=== PATIENT | female | born 1990 ===

== ENCOUNTER 2018-03-07 16:38 | Inpatient (IN) | payer MEDICAID ==
[2018-03-07 17:02] VITALS: BMI 37.8
[2018-03-07] MEDS: Lactated Ringer's 1,000 ML IV SCH ×2 (17:10→18:34)
[2018-03-07] MEDS ORDERED: Oxytocin 30 UNIT 30 UNITS/500 ML BAG IV ONE ×2 (17:26→20:17)
[2018-03-07] MEDS ORDERED: Lactated Ringer's 1,000 ML IV SCH (17:30)
[2018-03-07 18:00] LABS: BASO # 0.1 K/uL (0.0-0.2); BASO % 0.4 % (0.0-2.0); EOS # 0.1 K/uL (0.0-0.7); EOS % 0.6 % (0.0-4.0); HEMOGLOBIN 12.3 g/dL (12.0-16.0); LYMPH # 2.9 K/uL (1.0-4.3); LYMPH % 21.3 % (20.0-40.0); MEAN CELL VOLUME 75.3 fl (81.0-99.0); MEAN CORPUSCULAR HEMOGLOBIN 23.7 pg (27.0-31.0); MEAN CORPUSCULAR HGB CONC 31.4 g/dL (33.0-37.0); MEAN PLATELET VOLUME 11.5 fl (7.2-11.7); MONO # 0.7 K/uL (0.0-0.8); MONO % 5.1 % (0.0-10.0); NEUT # 9.8 K/uL (1.8-7.0); NEUT % 72.6 % (50.0-75.0); NRBC % 0.1 % (0.0-0.0); RBC 5.2 Mil/uL (3.80-5.20); RED CELL DISTRIBUTION WIDTH 14.6 % (11.5-14.5); WHITE BLOOD COUNT 13.4 K/uL (4.8-10.8)
[2018-03-07] MEDS ORDERED: Fentanyl/Bupivacaine HCl 250 ML EPI ONE (18:08)
[2018-03-07 18:17] LABS: BARBITURATES, UR NEGATIVE (NEGATIVE); BENZODIAZEPINES, UR NEGATIVE (NEGATIVE); OPIATES, UR NEGATIVE (NEGATIVE); PHENCYCLIDINE, UR NEGATIVE (NEGATIVE)
[2018-03-07] MEDS ORDERED: Benzocaine/Menthol SPRAY TOP PRN ×2 (20:17→21:47)
[2018-03-07] MEDS ORDERED: Oxycodone/Acetaminophen 5/325 mg Tab PO PRN ×4 (20:17→21:47)
[2018-03-08 07:31] LABS: BASO % 0.2 % (0.0-2.0); EOS % 0.3 % (0.0-4.0); HEMOGLOBIN 10.9 g/dL (12.0-16.0); LYMPH # 2.3 K/uL (1.0-4.3); LYMPH % 16.5 % (20.0-40.0); MEAN CELL VOLUME 74.7 fl (81.0-99.0); MEAN CORPUSCULAR HGB CONC 32.1 g/dL (33.0-37.0); MEAN PLATELET VOLUME 10.9 fl (7.2-11.7); MONO # 0.9 K/uL (0.0-0.8); MONO % 6.3 % (0.0-10.0); NEUT # 10.8 K/uL (1.8-7.0); NEUT % 76.7 % (50.0-75.0); RBC 4.56 Mil/uL (3.80-5.20); WHITE BLOOD COUNT 14.1 K/uL (4.8-10.8)
--- NOTE | 2018-03-08 07:34 | OBPPN ---
Datetime: 03/08/2018 07:30 PP Pain Prov: Within normal limits PP Abdomen/Uterus Prov: Normal PP Lochia Prov: Normal PP Extremities Prov: Normal PP Impression Prov: Normal progression PP Plan Prov: Continue present management PP Progress Note Prov: PPD 1 s/p VD, doing well Continue current care Vital Signs Provider PP: Reviewed
[2018-03-08] MEDS: Multivitamin With Minerals Tab PO SCH (08:25)
--- NOTE | 2018-03-08 08:45 | OBDS ---
DELIVERY PERSONNEL Delivery Doctor: Gonzalo Miller MD Digital Production Artist: Susan Swanson RN Anesthesiologist: Sylvain MATERNAL INFORMATION Delivery Anesthesia: Epidural Medications in Delivery: Pitocin Estimated Blood Loss (ml): 200 Placenta Cultured: No Maternal Complications: None Provider Comments: Normal spontaneous vaginal delivery. Patient delivered viable with Apgars of 9 and 9 at one and 5 minutes respectively. Patient delivered via UYEN position. Placenta delivered spontaneously. Uterus firm and appropriately hemostati c following delivery. No lacerations, perineum intact. Patient tolerated delivery well. No complicati ons. Estimated blood loss 200 mL. LABOR SUMMARY EDC: 03/08/2018 00:00 No. Babies in Womb: 1 Attempted: No Labor Anesthesia: Epidural LABOR INFORMATION Reason for Induction: Not Applicable Onset of Labor: 03/07/2018 19:18 Complete Dilatation: 03/07/2018 20:02 Oxytocin: N/A Group B Beta Strep: unknown Steroids Given: None Reason Steroids Not Administered: Not Applicable MEMBRANES Membranes Rupture Method: Artificial Rupture of Membranes: 03/07/2018 19:25 Length of Rupture (hrs): 0.68 Amniotic Fluid Color: Heavy Meconium Amniotic Fluid Amount: Large Amniotic Fluid Odor: None STAGES OF LABOR Stage 1 hrs: 0 Stage 1 min: 44 Stage 2 hrs: 0 Stage 2 min: 4 Stage 3 hrs: 0 Stage 3 min: 4 Total Time in Labor hrs: 0 Total Time in Labor min: 52 VAGINAL DELIVERY Episiotomy: None Laceration Extension: N/A Laceration Type: None Laceration Repair: Not Applicable Initial Vag Sponge Count: 15 Final Vag Sponge Count: 15 Initial Vag Sharps Count: 0 Final Vag Sharps Count: 0 Sponge Count Correct: Yes Sharps Count Correct: N/A Count Comment: count correct BABY A INFORMATION Delivery Date/Time: 03/07/2018 20:06 Method of Delivery: Vaginal Born in Route : No : N/A Forceps: N/A Vacuum Extraction: N/A Shoulder Dystocia : No SHOULDER DYSTOCIA BABY A Delivery Date/Time: 03/07/2018 20:06 PRESENTATION/POSITION BABY A Presentation: Cephalic Cephalic Presentation: Vertex PLACENTA INFORMATION BABY A Placenta Delivery Time : 03/07/2018 20:10 Placenta Method of Delivery: Spontaneous Placenta Status: Delivered SCORES BABY A Heart Rate 1 min: >100 bpm Resp Effort 1 min: Good Cry Reflex Irritability 1 min: Cough or Sneeze or Pulls Away Muscle Tone 1 min: Active Motion Color 1 min: Body [place], Extremities Blue Resuscitation Effort 1 min: Tactile Stimulation SCORE 1 MIN: 9 Heart Rate 5 min: >100 bpm Resp Effort 5 min: Good Cry Reflex Irritability 5 min: Cough or Sneeze or Pulls Away Muscle Tone 5 min: Active Motion Color 5 min: Body [place], Extremities Blue Resuscitation Effort 5 min: N/A SCORE 5 MIN: 9 INFORMATION BABY A Gestational Age at Delivery: 39.6 Gestational Status: Term Infant Outcome : Liveborn Condition : Stable Infant Sex: Male IDENTIFICATION/MEDS BABY A ID Band Number: [id number] ID Band Location: Left Leg; Left Arm WEIGHT/LENGTH BABY A Birthweight (gms): 3380 Infant Weight (lb): 7 Weight (oz): 7 CORD INFORMATION BABY A No. Cord Vessels: 3 Nuchal Cord : N/A Cord Blood Taken: Yes Suction: Mouth; Nose ASSESSMENT BABY A Complications: Multiple Late Decels; Multiple Variable Decels; Meconium Physical Findings at Delivery: Within Normal Limits Respirations: Appears Normal Hat Parts Cutter Machine/ALS Called : No Care By: Dr Doan/Miranda Transferred To: Remains with Mother
[2018-03-08] MEDS ORDERED: Multivitamin With Minerals Tab PO SCH (09:00)
[2018-03-09] MEDS: Multivitamin With Minerals Tab PO SCH (09:43)
--- NOTE | 2018-03-09 11:08 | OBPPN ---
Datetime: 03/09/2018 06:44 PP Pain Prov: Within normal limits PP Nausea Prov: Denies PP Flatus Prov: Yes PP BM Prov: No PP Breasts Prov: Not Done PP Heart Prov: Normal PP Lungs Prov: Normal PP Abdomen/Uterus Prov: Normal PP Lochia Prov: Normal PP Vulva/Perineum Prov: Not Done PP CVA Tenderness Prov: Not Done PP Extremities Prov: Normal PP C/S Incision Prov: Not Applicable PP Progress Prov: Normal PP Impression Prov: Normal progression PP Plan Prov: Continue present management PP Progress Note Prov: S: 27 y/o , s/p on 03/07/18 @ 20:06. Pt. is seen and examined at bedside this AM. No significant overnight events. Pt reports occasional abdominal pain, but well cont rolled with pain meds. Pt is ambulating without any difficulties. Breast and bottle feeding baby. Emily erating PO diet. Lochia is similar to light menses in volume. Voiding freely, no bowel movement, but passing gas per rectum. Denies fever, chills, diarrhea, nausea, vomiting, chest pain, dyspnea, and di zziness. O: VS: stable GEN: NAD Cardio: S1S2, no M/G/R Resp: clear air entry bilaterally. Abdomen: BS+, NT, Uterus is firm and at the level of the umbilicus. EXT: No edema, calves nontender NEURO/PSYCHI: AAOx3 Assessment/Plan: 27 y/o , s/p on 03/07/18 @ 20:06. Pt remains afebrile, tolerating ana paula n with medication, tolerating PO intake, doing well on PPD2. OOB with caution 1. Patient ambulating 2. Ibuprofen 600mg for 3. Colace 100mg PO BID constipation 4. Encourage 5. CBC post-delivery: 10.9/34.1 6. Anticipated d/c to home, 03/09/2018. --- Bell Amin MD PGY-[address] Payne: Patient evaluated independently and I agree with the above IP PP Procedures: None Vital Signs Provider PP: Reviewed; Within Normal Limits
--- NOTE | 2018-03-09 11:08 | OBDCSUM ---
Datetime: 03/09/2018 06:47 Discharged to, Provider: Home Follow up at, Provider: [facility] Disch Instr Activity: Normal activity Disch Instr Diet: Regular Discharge Instructions, Provider: Routine instructions given Discharge Diagnosis, Provider: Term Delivered Discharge Time: 03/09/2018 10:00 Follow up in weeks, Provider: 6 weeks Disch Referrals: None Disch Activity Restrictions: No exercising; Minimize stair-climbing; No sexual activity; Nothing in vagina - [place], tampons, douche Discharge Comment, Provider: EGA: 39.6 Diagnosis: 27 y/o , s/p on 03/07/18 @ 20:06. She delivered a baby boy, Weight 3380g, A PGAR 01/25 Summary: Patient is PPD2 with normal progression. No complications during post- period. Loch ia described as less than menses. Pt was able to pass gas but has not had a BM as of yet. She is tole rating regular diet, Fundus firm below umbilicus, able to ambulate w/o any difficulties, voiding well , denies fever, chills, THAKUR, SOB, N/V, calf pain. CBC post-: 10.9/34.1 Discharge Instructions: Continue and increase PNV 1 tab PO daily Ibuprofen 600mg 1 tab PO Q6h prn for mild-mod pain Instructions given to patient: If excessive bleeding, return of pain or increasing pain and/or fev er without relief from medication, go to ED PT was urged if feeling sad, mood swing, depression, neglect of baby, suicidal thoughts, homicidal thought should go to ED or call 911 for help Pt should go to her Primary care doctor if she has difficulty with . F/U 6 weeks with [facility]. Bell Amin MD PGY1 Contraception after Delivery: Undecided
[2018-03-09 22:22] VITALS: BP 129/68; PULSE 85; RESP 20; TEMP 98.7; O2SAT 99
[2018-03-10 15:38] LABS: RUBELLA AB (IGG) 8.23 index
== END 2018-03-09 13:30 | disposition home or self-care (01) | DRG 373 ==
LOC: H.EROB2 16:38 → H.L&D 17:22 → H.OB/GYN 21:51
PROVIDERS: ADMIT Obstetrics & Gynecology; ATTEND Obstetrics & Gynecology
PROC: 10E0XZZ Delivery of Products of Conception, External Approach (ICD-10-PCS; principal; 2018-03-07)
PROC: 10907ZC Drainage of Amniotic Fluid, Therapeutic from Products of Conception, Via Natural or Artificial Opening (ICD-10-PCS; 2018-03-07)
PROC: 4A1HXCZ Monitoring of Products of Conception, Cardiac Rate, External Approach (ICD-10-PCS; 2018-03-07)
DX: O77.0 Labor and delivery complicated by meconium in amniotic fluid (principal); O76 Abnormality in fetal heart rate and rhythm complicating labor and delivery; Z3A.39 39 weeks gestation of pregnancy; Z37.0 Single live birth; K59.00 Constipation, unspecified